=== PATIENT | female | born 1930 | race Caucasian/White ===

== ENCOUNTER 2018-03-06 22:46 | Emergency (ER) | payer MEDICARE, BC ==
[2018-03-06] MEDS ORDERED: fentaNYL 100 MCG/2 ML SDV IM ONE (23:34)
--- NOTE | 2018-03-06 23:37 | EDM.PDOC ---
ED HPI GENERAL MEDICAL PROBLEM - General Chief Complaint: Lower Extremity Injury/Pain Stated Complaint: R LEG PAIN Time Seen by Provider: 03/06/18 23:27 Source of Information: Reports: Patient, Family, RN Notes Reviewed History Limitations: Reports: No Limitations - History of Present Illness INITIAL COMMENTS - FREE TEXT/NARRATIVE: 87-year-old female presents emergency department day complaint of right calf pain and inner thigh pain, she states is been ongoing for about 3 days his progressively gotten worse to the point she has difficulty bearing weight she denies any trauma any unusual movements. Denies any long travel. No other symptomology right leg Pain Score (Numeric/FACES): 7 - Related Data Allergies Allergy/AdvReac Type Severity Reaction Status Date / Time amoxicillin trihydrate Allergy Unknown Rash Verified 03/06/18 23:16 [From Augmentin] chloral hydrate Allergy Unknown Cannot Verified 03/06/18 23:16 Remember nortriptyline [Nortriptyline] Allergy Unknown Cannot Verified 03/06/18 23:16 Remember potassium clavulanate Allergy Unknown Rash Verified 03/06/18 23:16 [From Augmentin] Home Meds: Home Meds Calcium/Magnesium/Vitamin D 2 tab PO DAILY 11/21/13 [History] Aspirin [Adult Low Dose Aspirin EC] 81 mg PO DAILY 11/21/13 [History] Lisinopril 10 mg PO DAILY 11/21/13 [History] Meclizine HCl 25 mg PO DAILY PRN 11/21/13 [History] Multivitamin [Multivitamins] 2 tab PO DAILY 11/21/13 [History] [place]-3/DHA/Epa/Fish Oil [[place]-3 Fish Oil 1,200 MG Sfgl] 2,400 mg PO DAILY [History] Pravastatin Sodium 80 mg PO DAILY 11/21/13 [History] rOPINIRole [Requip] 0.5 mg PO BID 11/21/13 [History] Vit C/E/Zn/Coppr/Lutein/Zeaxan [Preservision Areds 2 Softgel] 2 cap PO DAILY [History] Past Medical History HEENT History: Reports: Impaired Vision Cardiovascular History: Reports: Hypertension Respiratory History: Reports: Sleep Apnea Gastrointestinal History: Reports: Other (See Below) Other Gastrointestinal History: umbilical hernia Genitourinary History: Reports: Other (See Below) Other Genitourinary History: hyperlipidemia 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 superficial thrombophelebitis - Infectious Disease History Infectious Disease History: Reports: Chicken Pox - Past Surgical History Female Surgical History: Reports: Mastectomy, Other (See Below) Other Female Surgeries/Procedures: Left mastectomy Musculoskeletal Surgical History: Reports: Carpal Tunnel, Knee Replacement Social & Family History - Tobacco Use Smoking Status *Q: Never Smoker - Caffeine Use Caffeine Use: Reports: None - Recreational Drug Use Recreational Drug Use: No Review of Systems - Review of Systems Review Of Systems: See Below Constitutional: Reports: No Symptoms Respiratory: Reports: No Symptoms Cardiovascular: Reports: No Symptoms Musculoskeletal: Reports: Leg Pain Skin: Reports: No Symptoms Neurological: Reports: No Symptoms ED EXAM, GENERAL - Physical Exam Exam: See Below Free Text/Narrative:: Examination of the right leg I don't appreciate any erythema there is no edema noted she is point tender along the medial aspect of the calf and also point tender medial aspect mid I don't appreciate a superficial cord she does pain with dorsiflexion of the foot Exam Limited By: No Limitations General Appearance: Alert, WD/WN, No Apparent Distress Respiratory/Chest: No Respiratory Distress, Lungs Clear, Normal Breath Sounds, No Accessory Muscle Use Cardiovascular: Regular Rate, Rhythm, No Murmur Course - Vital Signs Last Recorded V/S: Last Vital Signs Temp 97.3 F 03/07/18 00:18 Pulse 71 03/07/18 00:18 Resp 17 03/07/18 00:18 BP 137/61 03/07/18 00:18 Pulse Ox 93 L 03/07/18 00:18 - Orders/Labs/Meds Orders: Active Orders 24 hr Category Date Time Status VL Duplex Lwr Ext Veins Ltd Rt [US] Stat Exams 03/07/18 00:41 Taken Labs: Laboratory Tests 03/06/18 03/06/18 03/06/18 Range/Units 23:43 23:43 23:43 WBC 7.7 (4.5-11.0) K/uL RBC 4.00 (3.30-5.50) M/uL Hgb 12.4 (12.0-15.0) g/dL Hct 38.5 (36.0-48.0) % MCV 96 (80-98) fL MCH 31 (27-31) pg MCHC 32 (32-36) % Plt Count 233 (150-400) K/uL Neut % (Auto) 57 (36-66) % Lymph % (Auto) 29 (24-44) % [place] % (Auto) 12 H (2-6) % Eos % (Auto) 2 (2-4) % Baso % (Auto) 0 (0-1) % D-Dimer, Quantitative 2700 H (0.0-400.0) ng/mL Sodium 137 L (140-148) mmol/L Potassium 4.4 (3.6-5.2) mmol/L Chloride 102 (100-108) mmol/L Carbon Dioxide 29 (21-32) mmol/L Anion Gap 10.4 (5.0-14.0) mmol/L BUN 24 H (7-18) mg/dL Creatinine 1.0 (0.6-1.0) mg/dL Est Cr Clr Drug Dosing 29.54 mL/min Estimated GFR (MDRD) 53 L (>60) Glucose 124 H (74-106) mg/dL Calcium 9.3 (8.5-10.1) mg/dL Meds: Medications Discontinued Medications Generic Name Dose Route Start Last Admin Trade Name Corey PRN Reason Stop Dose Admin Fentanyl 50 mcg 03/06/18 23:34 03/06/18 23:45 Sublimaze IM 03/06/18 23:35 50 mcg ONETIME ONE Administration Departure - Departure Time of Disposition: 02:22 Disposition: Home, Self-Care 01 Condition: Fair Clinical Impression: Right leg pain - Discharge Information Referrals: Dwayne Espino MD [Primary Care Provider] - Forms: ED Department Discharge Additional Instructions: Use hydrocodone as needed for pain control, Please followup with your primary care provider in 3-5 days if not better, please call return to the emergency department with worsening of symptoms. - My Orders Last 24 Hours: My Active Orders 03/07/18 00:41 VL Duplex Lwr Ext Veins Ltd Rt [US] Stat - Assessment/Plan Last 24 Hours: My Active Orders 03/07/18 00:41 VL Duplex Lwr Ext Veins Ltd Rt [US] Stat Plan: Assessment Acuity = acute Site and laterality = right leg pain Etiology = unclear etiology Manifestations = none Location of injury = Home Lab values = CBC, BMP unremarkable, d-dimer 12 elevated 2700 of uncertain significance, CT scan of the right lower extremity negative for superficial or DVT Plan She had good relief with the fentanyl provided she will be discharged home with hydrocodone 5/325 one tab by mouth 3 times a day when necessary total #20 to seek follow-up with her primary care on Friday This note was dictated using [employer] voice recognition software please call with any questions on syntax or grammar.
--- NOTE | 2018-03-09 09:39 | US ---
VL Duplex Lwr Ext Veins Ltd Rt INDICATION: Pain, elevated d-dimer TECHNIQUE: The deep venous system of right leg imaged, including the common femoral, deep femoral, villegas perficial femoral, popliteal, and where visualized, calf veins. Imaging included duplex, compressio n, and augmentation. COMPARISON: None FINDINGS: There is no evidence of deep venous thrombosis. Other incidental findings: None. IMPRESSION: No evidence of deep venous thrombosis.
== END 2018-03-07 02:45 | disposition home or self-care (01) ==
LOC: JP.ED 22:46
DX: M79.661 Pain in right lower leg (principal); I10 Essential (primary) hypertension; E78.5 Hyperlipidemia, unspecified; Z88.1 Allergy status to other antibiotic agents; Z88.8 Allergy status to other drugs, medicaments and biological substances; Z79.82 Long term (current) use of aspirin; Z79.899 Other long term (current) drug therapy
CPT/HCPCS: 36415; 80048; 85025; 85379; 93971; 96372; 99283; 99284; J3010

== ENCOUNTER 2022-03-07 20:55 | Emergency (ER) | payer MEDICARE, BC ==
[2022-03-07] MEDS ORDERED: Ketorolac 30 MG/ML SDV IM ONE (21:28)
[2022-03-07] MEDS ORDERED: Acetaminophen/oxyCODONE 325-5 MG Tab PO ONE (21:29)
[2022-03-07 22:09] LABS: ESTIMATED GFR 54 mL/min (>60)
[2022-03-07] MEDS ORDERED: Acetaminophen/HYDROcodone 325-5 MG Tab PO ONE (23:13)
== END 2022-03-08 00:05 | disposition home or self-care (01) ==
LOC: JP.ED 20:55
DX: S30.0XXA Contusion of lower back and pelvis, initial encounter (principal); I48.91 Unspecified atrial fibrillation; I10 Essential (primary) hypertension; Z88.0 Allergy status to penicillin; Z79.82 Long term (current) use of aspirin; W10.8XXA Fall (on) (from) other stairs and steps, initial encounter
CPT/HCPCS: 36415; 72110; 72170; 80053; 85025; 96372; 99282; 99283; A9270; J1885

== ENCOUNTER 2022-03-16 13:13 | Emergency (ER) | payer MEDICARE, BC ==
[2022-03-16] MEDS ORDERED: Sodium Chloride 0.9% 10 ML Syringe FLUSH PRN (14:46)
[2022-03-16] MEDS ORDERED: fentaNYL 100 MCG/2 ML SDV IVPUSH ONE (14:48)
[2022-03-16] MEDS ORDERED: Furosemide 40 MG/4 ML VIAL IVPUSH ONE (14:48)
[2022-03-16 16:01] LABS: ESTIMATED GFR 54 mL/min (>60); TROPONIN I HIGH SENSITIVITY 21.8 pg/mL (<=60.3)
== END 2022-03-16 17:45 | disposition home or self-care (01) ==
LOC: JP.ED 13:13
DX: I11.0 Hypertensive heart disease with heart failure (principal); I50.9 Heart failure, unspecified; Z88.0 Allergy status to penicillin; Z88.1 Allergy status to other antibiotic agents; Z88.8 Allergy status to other drugs, medicaments and biological substances; Z79.899 Other long term (current) drug therapy; Z79.01 Long term (current) use of anticoagulants; Z79.82 Long term (current) use of aspirin
CPT/HCPCS: 36415; 71045; 80053; 81001; 83880; 84484; 85025; 96374; 96375; 99283; 99285; J1940; J3010; J3490

== ENCOUNTER 2022-03-21 16:50 | Emergency (ER) | payer MEDICARE, BC ==
[2022-03-21] MEDS ORDERED: Furosemide 40 MG/4 ML VIAL IVPUSH ONE (18:13)
[2022-03-21] MEDS ORDERED: Glycerin 2.1 GM Supp RECTAL ONE (18:14)
== END 2022-03-21 20:45 | disposition home or self-care (01) ==
LOC: JP.ED 16:50
DX: M79.604 Pain in right leg (principal); R60.0 Localized edema; I11.0 Hypertensive heart disease with heart failure; I50.9 Heart failure, unspecified; G47.33 Obstructive sleep apnea (adult) (pediatric); E87.1 Hypo-osmolality and hyponatremia; E87.8 Other disorders of electrolyte and fluid balance, not elsewhere classified; K59.09 Other constipation; Z88.0 Allergy status to penicillin; Z88.8 Allergy status to other drugs, medicaments and biological substances; Z79.899 Other long term (current) drug therapy; Z79.01 Long term (current) use of anticoagulants; Z79.82 Long term (current) use of aspirin
CPT/HCPCS: 36415; 51798; 80048; 81001; 83880; 96374; 99283; A9270; J1940